=== PATIENT | female | born 1985 | race Caucasian/White ===

== ENCOUNTER 2020-03-20 10:55 | Outpatient (REF) | payer MEDICAID, SELFPAY | END 2020-03-20 10:56 | disposition home or self-care (01) | LOC: HO.LAB 10:55 | PROVIDERS: Visit Provider Internal Medicine | DX: Z20.828 Contact with and (suspected) exposure to other viral communicable diseases (principal) | CPT/HCPCS: C9803; U0003 ==

== ENCOUNTER 2020-05-24 11:26 | Outpatient (REF) | payer MEDICAID, SELFPAY | END 2020-05-24 11:27 | disposition home or self-care (01) | LOC: HO.LAB 11:26 | PROVIDERS: PCP Family Medicine; Visit Provider Internal Medicine | DX: Z20.822 Contact with and (suspected) exposure to COVID-19 (principal) | CPT/HCPCS: 36415; C9803; U0003; U0005 ==

== ENCOUNTER 2020-07-21 11:32 | Outpatient (REF) | payer MEDICAID, SELFPAY ==
[2020-07-21 12:02] LABS: COVID-19 Test Negative (Negative)
== END 2020-07-21 11:33 | disposition home or self-care (01) ==
LOC: HO.LAB 11:32
PROVIDERS: Visit Provider Internal Medicine
DX: Z20.822 Contact with and (suspected) exposure to COVID-19 (principal)
CPT/HCPCS: 36415; 87635; C9803